=== PATIENT | female | born 1975 | race Caucasian/White ===

== ENCOUNTER 2018-04-02 07:00 | Inpatient (IN) | payer OTHER ==
[~2018-04-02] VITALS: Ht 175.3 cm; Wt 158.8 kg
[~2018-04-02 07:00] MED LIST: ACET-6134 PO
[2018-04-02 07:08] VITALS: BP 128/105
--- NOTE | 2018-04-02 07:14 | NUR ---
PT TAKEN TO BED 11
--- NOTE | 2018-04-02 07:15 | NUR ---
BIB SELF. C/O LOWER SHERYL AB PAIN X 5 DAY. + NAUSEA, + VOMITTING ON SUNDAY, NO DIARRHEA, LBM SUNDAY, 10/10 PRESSURE/ SEVERE PAIN SCALE; LAST BOWEL MOVEMENT ON SUNDAY, SHE STATES SHE NORMALLY HAS A BM DAILY. SKIN IS PINK/WARM/DRY; AAOX4 WITH EVEN AND STEADY GAIT; LUNGS CLEAR BL; HR EVEN AND REGULAR; PT DENIES ANY FEVER, CP, SOB, OR COUGH AT THIS TIME; PATIENT STATES PAIN OF 10/10 AT THIS TIME; VSS; PATIENT POSITIONED FOR COMFORT; HOB ELEVATED; BEDRAILS UP X2; BED DOWN. ER MD MADE AWARE OF PT STATUS.
--- NOTE | 2018-04-02 07:18 | NUR ---
DR GONZALEZ AT BEDSIDE.
[2018-04-02] MEDS ORDERED: KETOROLAC 60 MG/2 ML VIAL IM ONE (07:25)
--- NOTE | 2018-04-02 07:59 | NUR ---
Dr. Barajas re-evaluating patient at bedside.
--- NOTE | 2018-04-02 08:22 | NUR ---
LAB AT BEDSIDE.
--- NOTE | 2018-04-02 08:55 | NUR ---
PATIENT STATES SHE IS STILL IN PAIN 11/30. DR GONZALEZ INFORMED.
[2018-04-02 08:56] LABS: BASOPHILS # (AUTO) 0.1 K/uL (0.00-0.22); BASOPHILS % (AUTO) 0.4 % (0.0-2.0); EOSINOPHILS # (AUTO) 0.1 K/uL (0-0.4); EOSINOPHILS % (AUTO) 0.4 % (0.0-4.0); HEMATOCRIT 39.4 % (36-48); HEMOGLOBIN 12.9 g/dL (12.0-16.0); LYMPHOCYTES # (AUTO) 1.7 K/uL (2.5-16.5); LYMPHOCYTES % (AUTO) 10.3 % (20.5-51.1); MEAN CORPUSCULAR HEMOGLOBIN 30 pg (27-31); MEAN CORPUSCULAR HGB CONC 33 g/dL (33-37); MEAN CORPUSCULAR VOLUME 91.3 fL (80-94); MONOCYTES # (AUTO) 1.5 K/uL (0.8-1.0); MONOCYTES % (AUTO) 8.9 % (1.7-9.3); PLATELET COUNT (AUTO) 334 K/uL (140-450); RED BLOOD CELL COUNT(AUTO) 4.31 MIL/uL (4.20-5.40); RED CELL DISTRIBUTION WIDTH 13.7 % (11.6-13.7); WHITE BLOOD COUNT (AUTO) 16.2 K/uL (4.8-10.8)
[2018-04-02 09:06] LABS: APPEARANCE,URINE CLOUDY (CLEAR); BILIRUBIN,URINE NEGATIVE (NEGATIVE); BLOOD, URINE NEGATIVE (NEGATIVE); COLOR,URINE YELLOW (YELLOW); LEUKOCYTE ESTERASE ,URINE 1+ (NEGATIVE); NITRITE, URINE NEGATIVE (NEGATIVE); UGLUCOSE NEGATIVE (NEGATIVE)
[2018-04-02 09:44] LABS: RBC,URINE 0-5 (RARE) /HPF (0-5)
[2018-04-02] MEDS ORDERED: MORPHINE SULFATE 4 MG/ML SYR IVP ONE (09:50)
[2018-04-02] MEDS ORDERED: ONDANSETRON 4 MG/2 ML VIAL IVP ONE (09:50)
--- NOTE | 2018-04-02 09:50 | NUR ---
Dr. Chambers evaluating patient at bedside.
[2018-04-02 10:02] LABS: CARBON DIOXIDE 23.7 mmol/L (21-32); POTASSIUM 3.7 mmol/L (3.5-5.1)
[2018-04-02 10:03] LABS: CREATININE 0.6 mg/dL (0.6-1.3)
[2018-04-02 10:05] LABS: ALBUMIN 2.9 g/dL (3.4-5.0); TOTAL BILIRUBIN 1.1 mg/dL (0.0-1.0)
[2018-04-02] MEDS ORDERED: MORPHINE SULFATE 2 MG/ML SYR IVP PRN (10:20)
[2018-04-02] MEDS ORDERED: ACETAMINOPHEN 325 MG TAB PO PRN (10:20)
[2018-04-02] MEDS ORDERED: LORazepam 2 MG/ML VIAL IVP PRN (10:20)
[2018-04-02] MEDS ORDERED: ONDANSETRON 4 MG/2 ML VIAL IVP PRN (10:20)
--- NOTE | 2018-04-02 10:45 | NUR ---
REPORT GIVEN TO ROBERT GU RN FOR CONTINUATION OF PATIENT CARE. PATIENT ALERT AND ORIENTED, STABLE AT TIME OF TRANSFER.
[2018-04-02 11:00] VITALS: BP 100/54
--- NOTE | 2018-04-02 11:00 | NUR ---
Admitted from ED , with chief complaint of ABDOMINAL PAIN. PT AAOX4. NO SOB NOTED. NO C/O PAIN AT THIS TIME. IV TO LT AC PATENT AND INTACT. CHEST CLEAR, DIMINISHED AIR ENTRY TO THE BASES. ABDOMEN SOFT, BOWEL SOUNDS PRESENT. PT IS A 42 y/o ,Female, Cooperative,oriented to call light, bed, phone,television, bathroom, smoking policy, visiting hours, procedures, ID bracelet on. Belongings list checked. INSTRUCTED PT TO CALL FOR ASSISTANCE, CALL LIGHT WITHIN REACH, PT VERBALIZED UNDERSTANDING.
[2018-04-02] MEDS: NACL 0.9% 1,000 ML IV SCH ×2 (12:23→22:47)
[2018-04-02] MEDS ORDERED: PNEUMOCOCCAL VACCINE 23 MCG/0.5 ML VIAL IMVAC SCH (14:05)
[2018-04-02] MEDS ORDERED: INFLUENZA VIRUS VACCINE QUAD 0.5 ML SYR IMVAC PRN (14:05)
[2018-04-02] MEDS: HYDROcodone/APAP 5/325 MG 1 TAB TAB PO PRN ×2 (14:13→20:23)
[2018-04-02 16:00] VITALS: BP 100/60
--- NOTE | 2018-04-02 18:00 | NUR ---
SPOKE WITH DR. LINARES OVER THE PHONE REGARDING THE CONSULT. DR. LINARES STATED HE WILL COME TO SEE PT.
--- NOTE | 2018-04-02 19:00 | NUR ---
PT AWAKE, FAMILY AT BEDSIDE. NO RESPIRATORY DISTRESS. NO COMPLAINTS MADE. WILL ENDORSE TO NEXT SHIFT NURSE FOR CONTINUITY OF CARE.
--- NOTE | 2018-04-02 19:31 | NUR ---
RECEIVED FROM AM RN IN BED AWAKE AND ALERT. FAMILY MEMBERS AT BEDSIDE VISITING. DENIES PAIN AT THIS TIME. CALL LIGHT WITH IN REACH. CARE PLANS FOR THE NIGHT DISCUSSED WITH HER. DX. OF UTI, ABDOMINAL CYST. NO SOB. IVF SITE TO RIGHT HAND # INTACT AND NEWLY INSERTED BY AM RN.
[2018-04-02 20:19] VITALS: BP 135/57
--- NOTE | 2018-04-02 20:27 | NUR ---
MD LINARES IN TO SEE PT. MEDICATED WITH NORCO PAIN RELIEVER RT C/O RIGHT SIDE ABDOMINAL PAIN. A/O X 4. VERBALIZES WELL.
--- NOTE | 2018-04-02 23:08 | NUR ---
SLEEPING AT THIS TIME. NO RESTLESS NESS NOTED.
[2018-04-03] MEDS: NACL 0.9% 1,000 ML IV SCH ×2 (02:48→18:08)
[2018-04-03 06:21] LABS: BASOPHILS % (AUTO) 0.2 % (0.0-2.0); EOSINOPHILS # (AUTO) 0.1 K/uL (0-0.4); EOSINOPHILS % (AUTO) 0.6 % (0.0-4.0); HEMOGLOBIN 12.4 g/dL (12.0-16.0); LYMPHOCYTES # (AUTO) 1.8 K/uL (2.5-16.5); LYMPHOCYTES % (AUTO) 11.8 % (20.5-51.1); MEAN CORPUSCULAR HEMOGLOBIN 30 pg (27-31); MEAN CORPUSCULAR HGB CONC 33 g/dL (33-37); MEAN CORPUSCULAR VOLUME 91.9 fL (80-94); MONOCYTES # (AUTO) 1.3 K/uL (0.8-1.0); MONOCYTES % (AUTO) 8.4 % (1.7-9.3); NEUTROPHILS # (AUTO) 12.3 K/uL (1.8-7.7); PLATELET COUNT (AUTO) 311 K/uL (140-450); RED BLOOD CELL COUNT(AUTO) 4.14 MIL/uL (4.20-5.40); RED CELL DISTRIBUTION WIDTH 13.5 % (11.6-13.7); WHITE BLOOD COUNT (AUTO) 15.6 K/uL (4.8-10.8)
[2018-04-03 06:41] VITALS: BP 145/84
--- NOTE | 2018-04-03 06:46 | NUR ---
AWAKE AT THIS TIME AND REQUESTED FOR PAIN RELIEVER. STATED HER STOMACH HURTS. CRYING. MEDICATED REQUESTED. A/O X4. CLEAR SPEECH.
[2018-04-03 07:07] LABS: ALBUMIN 2.6 g/dL (3.4-5.0); ANION GAP 11.1 (8-16); CARBON DIOXIDE 25.9 mmol/L (21-32); CREATININE 0.6 mg/dL (0.6-1.3); TOTAL BILIRUBIN 0.6 mg/dL (0.0-1.0)
--- NOTE | 2018-04-03 07:17 | NUR ---
ENDORSED TO THE NEXT RN FOR CONTINUITY OF CARE.
--- NOTE | 2018-04-03 07:26 | NUR ---
RECEIVED FROM EVS MANAGER RN. PT IS IN BED AWAKE AND ALERT. DENIES PAIN AT THIS TIME. CALL LIGHT WITHIN REACH. CARE PLANS FOR THE DAY DISCUSSED WITH PT. DX. OF UTI, ABDOMINAL CYST. NO SOB. IVF SITE TO RIGHT HAND #22G INTACT AND PATENT. PT STABLE AT THIS TIME.
[2018-04-03 08:00] VITALS: BP 127/66
--- NOTE | 2018-04-03 08:30 | NUR ---
PATIENT HAS BEEN SCREENED AND CATEGORIZED HIGH NUTRITION RISK. PATIENT WILL BE SEEN WITHIN 1-2 DAYS OF ADMISSION. 04/03/[address]
--- NOTE | 2018-04-03 09:45 | NUR ---
PT STATES PAIN. WILL MEDICATE APPROPRIATELY. IN STABLE CONDITION.
[2018-04-03] MEDS: ENOXAPARIN 40 MG/0.4 ML SYR SUBQ SCH (10:01)
--- NOTE | 2018-04-03 11:20 | NUR ---
PT IN STABLE CONDITION. DENIES PAIN AT THIS TIME. ALL NEEDS MET. CALL LIGHT WITHIN REACH. BED IN LOW POSITION.
--- NOTE | 2018-04-03 13:31 | NUR ---
04/03/18 RD INITIAL ASSESSMENT COMPLETED PLEASE REFER TO NUTRITION ASSESSMENT UNDER CARE ACTIVITY FOR ESTIMATED NUTRITIONAL NEEDS. 1. CONTINUE REGULAR DIET TOLERATED 2. RD PROVIDED NUTRITION EDUCATION FOR UTI 3. RD TO FOLLOW-UP 3-5 DAYS, MODERATE RISK GENEVIEVE GRIER RD
--- NOTE | 2018-04-03 14:20 | NUR ---
DR. ZUNIGA NOTIFIED OF NEED FOR GI CONSULT FOR POSSIBLE GALLSTONES.
--- NOTE | 2018-04-03 15:40 | NUR ---
PT SLEEPING IN BED. NO SIGNS OF PAIN. BED IN LOW POSITION. CALL LIGHT WITHIN REACH.
[2018-04-03 16:00] VITALS: BP 130/61
--- NOTE | 2018-04-03 19:32 | NUR ---
ENDORSED PT TO MANAGER PROVIDER RELATIONS FOR CONTINUITY OF CARE. PT IN STABLE CONDITION.
--- NOTE | 2018-04-03 19:32 | NUR ---
RECEIVED REPORT FROM DAY SHIFT NURSE KY-RN AT BEDSIDE. PT RESTING IN BED, AOX4, ON ROOM AIR WITH RIGHT HAND #22G RUNNING NS @ 80ML/HR. DISCUSSED PLAN OF CARE AND PT VERBALIZED UNDERSTANDING. NO S/S OF RESPIRATORY DISTRESS OR DISCOMFORT NOTED AT THIS TIME. BED IN LOWEST POSITION, BED BREAKS ON, BOTH SIDE RAILS UP. BEDSIDE TABLE AND CALL LIGHT ARE WITHIN REACH. WILL CONTINUE TO MONITOR.
[2018-04-03 20:00] VITALS: BP 91/68
--- NOTE | 2018-04-03 20:00 | NUR ---
VITAL SIGHS TAKEN AND TOLERATED WELL. PT C/O PAIN 10/30 REQUESTING MORPHINE. WILL ADMINISTER. NO S/S OF RESPIRATORY DISTRESS OR DISCOMFORT NOTED AT THIS TIME. WILL CONTINUE TO MONITOR.
[2018-04-03] MEDS: MORPHINE SULFATE 4 MG/ML SYR IVP PRN (20:06)
--- NOTE | 2018-04-03 20:06 | NUR ---
MORPHINE GIVEN FOR PAIN. PT TOLERATED WELL. NO S/S OF RESPIRATORY DISTRESS OR DISCOMFORT NOTED AT THIS TIME. WILL CONTINUE TO MONITOR.
--- NOTE | 2018-04-03 22:00 | NUR ---
PT SLEEPING IN BED. NO S/S OF RESPIRATORY DISTRESS OR DISCOMFORT NOTED AT THIS TIME. WILL CONTINUE TO MONITOR.
[2018-04-04] VITALS: BP 106/52
--- NOTE | 2018-04-04 | NUR ---
VITAL SIGNS TAKEN AND TOLERATED WELL. NO S/S OF RESPIRATORY DISTRESS OR DISCOMFORT NOTED AT THIS TIME. WILL CONTINUE TO MONITOR.
--- NOTE | 2018-04-04 02:00 | NUR ---
PT CONTINUES TO SLEEP IN BED. NO S/S OF RESPIRATORY DISTRESS OR DISCOMFORT NOTED AT THIS TIME. WILL CONTINUE TO MONITOR.
--- NOTE | 2018-04-04 04:00 | NUR ---
PT CONTINUES TO SLEEP IN BED. NO S/S OF RESPIRATORY DISTRESS OR DISCOMFORT NOTED AT THIS TIME. WILL CONTINUE TO MONITOR.
--- NOTE | 2018-04-04 06:00 | NUR ---
PT C/O PAIN 10/30 AND WILL ADMINISTER PAIN MEDICATION.
[2018-04-04] MEDS: MORPHINE SULFATE 4 MG/ML SYR IVP PRN (06:10)
[2018-04-04] MEDS: NACL 0.9% 1,000 ML IV SCH (06:10)
--- NOTE | 2018-04-04 06:10 | NUR ---
ADMINISTERED MORPHINE FOR PAIN REQUESTED BY PT. NEW IVF GIVEN AND TOLERATED WELL. NO S/S OF RESPIRATORY DISTRESS OR DISCOMFORT NOTED AT THIS TIME. WILL CONTINUE TO MONITOR.
--- NOTE | 2018-04-04 07:19 | NUR ---
ENDORSED PT CARE TO DAY SHIFT NURSE MEERA FOR CONTINUITY OF CARE.
[2018-04-04 07:20] LABS: BASOPHILS % (AUTO) 0.3 % (0.0-2.0); EOSINOPHILS # (AUTO) 0.2 K/uL (0-0.4); EOSINOPHILS % (AUTO) 1.6 % (0.0-4.0); HEMATOCRIT 35.1 % (36-48); HEMOGLOBIN 11.8 g/dL (12.0-16.0); LYMPHOCYTES # (AUTO) 2.4 K/uL (2.5-16.5); LYMPHOCYTES % (AUTO) 17.1 % (20.5-51.1); MEAN CORPUSCULAR HEMOGLOBIN 31 pg (27-31); MEAN CORPUSCULAR HGB CONC 34 g/dL (33-37); MEAN CORPUSCULAR VOLUME 91.8 fL (80-94); MONOCYTES # (AUTO) 1.4 K/uL (0.8-1.0); MONOCYTES % (AUTO) 10.3 % (1.7-9.3); NEUTROPHILS # (AUTO) 9.8 K/uL (1.8-7.7); NEUTROPHILS % (AUTO) 70.7 % (42.2-75.2); PLATELET COUNT (AUTO) 340 K/uL (140-450); RED BLOOD CELL COUNT(AUTO) 3.82 MIL/uL (4.20-5.40); RED CELL DISTRIBUTION WIDTH 13.6 % (11.6-13.7); WHITE BLOOD COUNT (AUTO) 13.9 K/uL (4.8-10.8)
--- NOTE | 2018-04-04 07:25 | NUR ---
RECEIVED REPORT FROM HEARING AID REPAIR TECHNICIAN AT BEDSIDE. PT RESTING IN BED, AOX4, ON ROOM AIR WITH RIGHT HAND #22G RUNNING NS @ 80ML/HR. DISCUSSED PLAN OF CARE AND PT VERBALIZED UNDERSTANDING. NO S/S OF RESPIRATORY DISTRESS OR DISCOMFORT NOTED AT THIS TIME. BED IN LOWEST POSITION, BED BREAKS ON, BOTH SIDE RAILS UP. BEDSIDE TABLE AND CALL LIGHT ARE WITHIN REACH. WILL CONTINUE TO MONITOR.
[2018-04-04 07:38] LABS: ALBUMIN 2.5 g/dL (3.4-5.0); ANION GAP 12.1 (8-16); CARBON DIOXIDE 26.8 mmol/L (21-32); CREATININE 0.6 mg/dL (0.6-1.3); POTASSIUM 3.9 mmol/L (3.5-5.1); TOTAL BILIRUBIN 0.5 mg/dL (0.0-1.0)
[2018-04-04 08:00] VITALS: BP 137/62
[2018-04-04] MEDS: ENOXAPARIN 40 MG/0.4 ML SYR SUBQ SCH (08:59)
--- NOTE | 2018-04-04 09:08 | NUR ---
ADMINISTERED MORNING LOVENOX TO PT. PT TOLERATED MED WELL. PT STATES ALL NEEDS MET AT THIS TIME. BED IN LOW POSITION, CALL LIGHT WITHIN REACH.
--- NOTE | 2018-04-04 11:59 | NUR ---
PT SLEEPING IN BED. NO SIGNS OF PAIN OR SOB NOTED. CALL LIGHT WITHIN REACH, BED IN LOW POSITION.
[2018-04-04] MEDS ORDERED: LEVO750T2 PO (13:03)
[2018-04-04 13:58] VITALS: BP 121/83
--- NOTE | 2018-04-04 15:36 | NUR ---
PT DISCHARGED HOME WITH MOM HER RIDE HOME. PT VITAL SIGNS IN STABLE CONDITION. IV REMOVED WITH TIP INTACT. DISCHARGE PAPERWORK/TEACHING GIVEN AND PT SIGNED. PT WALKED OFF UNIT. ALL PERSONAL BELONGINGS TAKEN WITH PT. PT VERBALIZED UNDERSTANDING OF TEACHING AND INSTRUCTIONS. RETURN TO WORK PAPER WAS PRINTED AND GIVEN TO PT.
== END 2018-04-04 15:36 | disposition home or self-care (01) | DRG 720 ==
LOC: MED 07:00 → MTU 10:17
PROVIDERS: ADMIT Hospitalist; ATTEND Hospitalist
PROC: 3E02340 Introduction of Influenza Vaccine into Muscle, Percutaneous Approach (ICD-10-PCS; principal; 2018-04-04)
PROC: 3E0234Z Introduction of Serum, Toxoid and Vaccine into Muscle, Percutaneous Approach (ICD-10-PCS; 2018-04-04)
DX: A41.9 Sepsis, unspecified organism (principal); E44.0 Moderate protein-calorie malnutrition; E87.1 Hypo-osmolality and hyponatremia; Z68.43 Body mass index [BMI] 50.0-59.9, adult; N39.0 Urinary tract infection, site not specified; E66.9 Obesity, unspecified; F17.210 Nicotine dependence, cigarettes, uncomplicated; K80.20 Calculus of gallbladder without cholecystitis without obstruction; R19.09 Other intra-abdominal and pelvic swelling, mass and lump; Z23 Encounter for immunization
CPT/HCPCS: 36415; 76705; 80053; 81001; 83605; 83690; 83735; 85025; 86304; 87040; 87081; 87086; 90658; 90732; 96372; 96374; 96375; 99285; J0696; J1650; J1885; J2270; J2405; J7030; J7060; Q0092